=== PATIENT | male | born 1990 | race African-American/Black ===

== ENCOUNTER 2024-04-19 16:58 | Emergency (ER) | payer OTHER ==
[~2024-04-19] VITALS: Ht 175.3 cm; Wt 86.6 kg
[2024-04-19 17:05] VITALS: BP 134/74; TEMP 98.7
[2024-04-19 17:53] VITALS: O2SAT 100
== END 2024-04-19 17:55 | disposition home or self-care (01) ==
LOC: ER 17:06
DX: S06.0X0A Concussion without loss of consciousness, initial encounter (principal); S13.4XXA Sprain of ligaments of cervical spine, initial encounter; S93.492A Sprain of other ligament of left ankle, initial encounter; Z60.2 Problems related to living alone; V89.2XXA Person injured in unspecified motor-vehicle accident, traffic, initial encounter; Y93.89 Activity, other specified; Y92.89 Other specified places as the place of occurrence of the external cause; Y99.8 Other external cause status

== ENCOUNTER 2024-12-01 10:56 | Emergency (ER) | payer OTHER ==
[~2024-12-01] VITALS: Ht 175.3 cm; Wt 88.5 kg
[2024-12-01] MEDS ORDERED: DIPH25CA83 PO (12:37)
[2024-12-01] MEDS ORDERED: PRED20TA PO (12:37)
[2024-12-01] MEDS ORDERED: FAMO-131 PO (12:37)
[2024-12-01 13:19] VITALS: BP 140/78; TEMP 98.7; O2SAT 98
== END 2024-12-01 13:20 | disposition home or self-care (01) ==
LOC: ER 11:28
DX: T78.40XA Allergy, unspecified, initial encounter (principal); L50.9 Urticaria, unspecified; X58.XXXA Exposure to other specified factors, initial encounter; Z60.2 Problems related to living alone